=== PATIENT | female | born 1970 | race Caucasian/White ===

== ENCOUNTER 2022-06-15 14:02 | Inpatient (IN) | payer BC ==
[~2022-06-15] VITALS: Ht 160 cm; Wt 84.4 kg
[2022-06-15] MEDS ORDERED: ONDANSETRON HCL INJ 2MG/ML 2ML 2 MG/ML VIAL IV STA (14:22)
[2022-06-15 14:34] LABS: BASOPHILS % 0.2 % (0.0-1.0); EOSINOPHILS % 0.1 % (0.0-6.0); HEMATOCRIT 33.7 % (34.2-44.1); HEMOGLOBIN 10.3 g/dL (12.0-16.0); LYMPHOCYTES # (AUTO) 1.1 (1.0-3.2); LYMPHOCYTES % 4.6 % (18.0-39.1); MEAN CORPUSCULAR HEMOGLOBIN 20.6 pg (28-32); MEAN CORPUSCULAR HGB CONC 30.6 g/dL (31-35); MEAN CORPUSCULAR VOLUME 67.4 fL (81-99); MONOCYTES # (AUTO) 1.1 (0.2-0.8); MONOCYTES % 4.8 % (4.4-11.3); NEUTROPHILS # (AUTO) 20.4 (2.1-6.9); NEUTROPHILS % 89.3 % (38.7-80.0); PLATELET COUNT 361 x10e3/uL (140-360); RED CELL DISTRIBUTION WIDTH 17.8 % (11.7-14.4)
[2022-06-15 14:52] LABS: ALBUMIN 1.8 g/dL (3.5-5.0); ALBUMIN/GLOBULIN RATIO 0.4 (0.8-2.0); ANION GAP 16.4 mmol/L (8-16); CALCIUM 8.3 mg/dL (8.4-10.2); CREATININE, SERUM 0.83 mg/dL (0.57-1.11); POTASSIUM 3.4 mmol/L (3.5-5.1)
[2022-06-15 15:08] LABS: ANISOCYTOSIS SLIGHT; LYMPHOCYTES % (MANUAL) 7 % (19-48); MONOCYTES % (MANUAL) 5 % (3.4-9.0); NEUTROPHILS % (MANUAL) 88 % (40-74); PLATELET ESTIMATE ADEQUATE; PLATELET MORPHOLOGY COMMENT NORMAL; RBC MORPHOLOGY COMMENT NORMAL
[2022-06-15] MEDS ORDERED: ONDANSETRON HCL INJ 2MG/ML 2ML 2 MG/ML VIAL IV PRN (16:30)
[2022-06-15] MEDS ORDERED: Morphine 4mg INJECTION 4 MG/ML INJ IV PRN (16:30)
[2022-06-15] MEDS: SODIUM CHLORIDE 0.9% 1000ML 1,000 ML IV SCH (17:58)
[2022-06-15] MEDS: Vancomycin IV 1 GM in SODIUM CHLORIDE 0.9% 250ML 250 ML IV SCH (17:58)
[2022-06-16] MEDS: SODIUM CHLORIDE 0.9% 1000ML 1,000 ML IV SCH ×3 (02:47→15:43)
[2022-06-16 05:05] LABS: BASOPHILS # (AUTO) 0.1 (0.0-0.1); BASOPHILS % 0.3 % (0.0-1.0); EOSINOPHILS # (AUTO) 0.1 (0.0-0.4); EOSINOPHILS % 0.6 % (0.0-6.0); HEMATOCRIT 31.2 % (34.2-44.1); HEMOGLOBIN 9.4 g/dL (12.0-16.0); LYMPHOCYTES # (AUTO) 1.2 (1.0-3.2); LYMPHOCYTES % 6.3 % (18.0-39.1); MEAN CORPUSCULAR HEMOGLOBIN 20.2 pg (28-32); MEAN CORPUSCULAR HGB CONC 30.1 g/dL (31-35); MONOCYTES % 5.4 % (4.4-11.3); NEUTROPHILS # (AUTO) 15.7 (2.1-6.9); NEUTROPHILS % 86.2 % (38.7-80.0); PLATELET COUNT 328 x10e3/uL (140-360); RED BLOOD COUNT 4.66 x10e6/uL (3.6-5.1); RED CELL DISTRIBUTION WIDTH 18.3 % (11.7-14.4)
[2022-06-16] MEDS: Vancomycin IV 1 GM in SODIUM CHLORIDE 0.9% 250ML 250 ML IV SCH ×2 (05:10→15:09)
[2022-06-16 05:24] LABS: ALBUMIN 1.5 g/dL (3.5-5.0); ALBUMIN/GLOBULIN RATIO 0.4 (0.8-2.0); ANION GAP 15.5 mmol/L (8-16); CALCIUM 8.1 mg/dL (8.4-10.2); CREATININE, SERUM 0.78 mg/dL (0.57-1.11); POTASSIUM 3.5 mmol/L (3.5-5.1)
[2022-06-16] MEDS ORDERED: IOPAMIDOL 370 MG/ML 100 ML INFUS..BTL INJ ONE (11:03)
[2022-06-16] MEDS ORDERED: SODIUM CHLORIDE 0.9% 100 ML ONE (11:03)
[2022-06-16] MEDS ORDERED: FLORINEF ACETA0.1 MG PO (12:17)
[2022-06-16] MEDS ORDERED: GABAPENTIN100 MG PO (12:17)
[2022-06-16] MEDS ORDERED: DIGOXIN250 MCG PO (12:17)
[2022-06-16] MEDS ORDERED: ATORVASTATIN CA40 MG PO (12:17)
[2022-06-16] MEDS ORDERED: IBUPROFEN800 MG PO (12:17)
[2022-06-16] MEDS ORDERED: MIDODRINE HCL5 MG PO (12:17)
[2022-06-16] MEDS ORDERED: JARDIANCE25 MG PO (12:17)
[2022-06-16] MEDS ORDERED: NOVOLOG100 UNITS1 (12:17)
[2022-06-16] MEDS ORDERED: ULTRAM 50MG50 MG PO (12:17)
[2022-06-16] MEDS ORDERED: KLOR-CON M1010 MEQ PO (12:17)
[2022-06-16] MEDS ORDERED: METFORMIN HCL1000 MG PO (12:17)
[2022-06-16] MEDS ORDERED: CLOPIDOGREL75 MG PO (12:17)
[2022-06-16] MEDS ORDERED: PANTOPRAZOLE SO40 MG PO (12:17)
[2022-06-16] MEDS ORDERED: FENOFIBRATE160 MG PO (12:17)
[2022-06-16] MEDS ORDERED: METOPROLOL SUCC25 MG PO (12:17)
[2022-06-16] MEDS ORDERED: SPIRONOLACTONE25 MG PO (12:17)
[2022-06-16] MEDS ORDERED: SEMGLEE (Y100 UNIT/2 SQ (12:17)
[2022-06-16] MEDS ORDERED: [UNRECOGNIZED DRUG - OTHER] PO (12:17)
[2022-06-16] MEDS ORDERED: FUROSEMIDE40 MG PO (12:17)
[2022-06-16] MEDS ORDERED: MIDODRINE HCL 5 MG TABLET PO PRN (15:30)
[2022-06-16] MEDS ORDERED: DEXTROSE 50% SYRINGE 50 ML IV PRN (15:30)
[2022-06-16] MEDS: TRAMADOL HCL 50 MG TAB PO PRN (16:21)
[2022-06-16] MEDS: PANTOPRAZOLE SOD 40 MG TABEC PO SCH (16:53)
[2022-06-16] MEDS ORDERED: NON-FORMULARY MEDICATION (Metformin Hcl 1,000 MG) PO SCH (17:00)
[2022-06-16] MEDS: INSULIN LISPRO 100 UNIT/1 ML 3ML VIAL SQ SCH (17:03)
[2022-06-16] MEDS ORDERED: INSULIN GLARGINE YFGN SQ SCH (21:00)
[2022-06-16 21:12] VITALS: BP 141/72
[2022-06-16 23:23] VITALS: BP 141/72
[2022-06-16] MEDS: GABAPENTIN 100 MG CAP PO SCH (23:30)
[2022-06-16] MEDS: FUROSEMIDE INJ 10 MG/ML 4 ML VIAL IV SCH (23:30)
[2022-06-16] MEDS: ATORVASTATIN 40 MG TAB PO SCH (23:30)
[2022-06-16] MEDS: INSULIN GLARGINE 100 UNITS/ML VIAL SQ SCH (23:37)
[2022-06-17] VITALS (11 sets, daily range): BP systolic 116–141; BP diastolic 57–74
[2022-06-17] MEDS: INSULIN LISPRO 100 UNIT/1 ML 3ML VIAL SQ SCH ×5 (00:03→21:00)
[2022-06-17] MEDS: TRAMADOL HCL 50 MG TAB PO PRN ×3 (00:58→22:23)
[2022-06-17] MEDS: SODIUM CHLORIDE 0.9% 1000ML 1,000 ML IV SCH ×3 (00:58→16:58)
[2022-06-17] MEDS: Vancomycin IV 1 GM in SODIUM CHLORIDE 0.9% 250ML 250 ML IV SCH ×2 (01:00→14:30)
[2022-06-17 05:03] LABS: BASOPHILS # (AUTO) 0.1 (0.0-0.1); BASOPHILS % 0.3 % (0.0-1.0); EOSINOPHILS # (AUTO) 0.1 (0.0-0.4); EOSINOPHILS % 0.4 % (0.0-6.0); HEMATOCRIT 32.4 % (34.2-44.1); HEMOGLOBIN 9.7 g/dL (12.0-16.0); LYMPHOCYTES # (AUTO) 1.6 (1.0-3.2); LYMPHOCYTES % 8.8 % (18.0-39.1); MEAN CORPUSCULAR HEMOGLOBIN 20.1 pg (28-32); MEAN CORPUSCULAR HGB CONC 29.9 g/dL (31-35); MEAN CORPUSCULAR VOLUME 67.1 fL (81-99); MONOCYTES # (AUTO) 1.2 (0.2-0.8); MONOCYTES % 6.6 % (4.4-11.3); NEUTROPHILS # (AUTO) 14.7 (2.1-6.9); NEUTROPHILS % 83.1 % (38.7-80.0); PLATELET COUNT 401 x10e3/uL (140-360); RED BLOOD COUNT 4.83 x10e6/uL (3.6-5.1); RED CELL DISTRIBUTION WIDTH 18.5 % (11.7-14.4)
[2022-06-17 05:20] LABS: ALBUMIN 1.5 g/dL (3.5-5.0); ALBUMIN/GLOBULIN RATIO 0.4 (0.8-2.0); ANION GAP 13.6 mmol/L (8-16); CALCIUM 7.8 mg/dL (8.4-10.2); CHOL/HDL RATIO 4.5 (3.0-3.6); CREATININE, SERUM 0.77 mg/dL (0.57-1.11); POTASSIUM 3.6 mmol/L (3.5-5.1)
[2022-06-17 05:41] LABS: THYROID STIMULATING HORMONE 4.333 uIU/mL (0.350-4.940)
[2022-06-17] MEDS ORDERED: SPIRONOLACTONE 25 MG TAB PO SCH (09:00)
[2022-06-17] MEDS ORDERED: NON-FORMULARY MEDICATION (Atorvastatin Calcium 40 MG) PO SCH (09:00)
[2022-06-17] MEDS: FOLIC ACID PO SCH (09:00)
[2022-06-17] MEDS: NON-FORMULARY MEDICATION (Empagliflozin (Jardiance) 25 MG) PO SCH (09:00)
[2022-06-17] MEDS ORDERED: DIGOXIN 0.25 MG TAB PO SCH (09:00)
[2022-06-17] MEDS: VIT B COMPLEX AND C PO SCH (09:00)
[2022-06-17] MEDS ORDERED: CLOPIDOGREL BISULFATE 75 MG TAB PO SCH (09:00)
[2022-06-17] MEDS ORDERED: NON-FORMULARY MEDICATION (Fenofibrate 160 MG) PO SCH (09:00)
[2022-06-17] MEDS: FENOFIBRATE 145 MG TAB PO SCH (09:25)
[2022-06-17] MEDS: GABAPENTIN 100 MG CAP PO SCH ×3 (09:26→22:07)
[2022-06-17] MEDS: FLUDROCORTISONE ACETATE 0.1 MG TAB PO SCH (09:26)
[2022-06-17] MEDS: METOPROLOL SUCCINATE 25 MG TAB XL PO SCH (09:27)
[2022-06-17] MEDS: PANTOPRAZOLE SOD 40 MG TABEC PO SCH ×2 (09:27→16:58)
[2022-06-17] MEDS: POTASSIUM CHLORIDE 20 MEQ TAB CR PO SCH (09:28)
[2022-06-17] MEDS: METFORMIN HCL 500 MG TAB PO SCH ×2 (09:28→16:59)
[2022-06-17] MEDS: FUROSEMIDE INJ 10 MG/ML 4 ML VIAL IV SCH (09:29)
[2022-06-17] MEDS ORDERED: FUROSEMIDE IV SCH (11:15)
[2022-06-17] MEDS ORDERED: SODIUM CHLORIDE 0.9% IV SCH (11:15)
[2022-06-17] MEDS: DIGOXIN 0.125 MG TAB PO SCH (11:23)
[2022-06-17] MEDS ORDERED: CLOPIDOGREL BISULFATE 75 MG TAB PO ONE (17:45)
[2022-06-17] MEDS: INSULIN GLARGINE 100 UNITS/ML VIAL SQ SCH (21:00)
[2022-06-17] MEDS: ATORVASTATIN 40 MG TAB PO SCH (22:07)
[2022-06-18] VITALS (13 sets, daily range): BP systolic 109–147; BP diastolic 60–76
[2022-06-18 05:56] LABS: BASOPHILS # (AUTO) 0.1 (0.0-0.1); BASOPHILS % 0.3 % (0.0-1.0); EOSINOPHILS # (AUTO) 0.1 (0.0-0.4); EOSINOPHILS % 0.5 % (0.0-6.0); HEMATOCRIT 32.6 % (34.2-44.1); HEMOGLOBIN 9.7 g/dL (12.0-16.0); LYMPHOCYTES # (AUTO) 1.9 (1.0-3.2); LYMPHOCYTES % 10.2 % (18.0-39.1); MEAN CORPUSCULAR HEMOGLOBIN 20.3 pg (28-32); MEAN CORPUSCULAR HGB CONC 29.8 g/dL (31-35); MEAN CORPUSCULAR VOLUME 68.2 fL (81-99); MONOCYTES # (AUTO) 1.5 (0.2-0.8); NEUTROPHILS % 79.9 % (38.7-80.0); PLATELET COUNT 340 x10e3/uL (140-360); RED BLOOD COUNT 4.78 x10e6/uL (3.6-5.1); RED CELL DISTRIBUTION WIDTH 18.6 % (11.7-14.4)
[2022-06-18 06:24] LABS: CALCIUM 8.1 mg/dL (8.4-10.2); CREATININE, SERUM 0.8 mg/dL (0.57-1.11)
[2022-06-18] MEDS: INSULIN LISPRO 100 UNIT/1 ML 3ML VIAL SQ SCH ×4 (07:30→20:12)
[2022-06-18] MEDS: METFORMIN HCL 500 MG TAB PO SCH ×2 (08:00→16:44)
[2022-06-18] MEDS: FLUDROCORTISONE ACETATE 0.1 MG TAB PO SCH (09:00)
[2022-06-18] MEDS: POTASSIUM CHLORIDE 20 MEQ TAB CR PO SCH (09:00)
[2022-06-18] MEDS: GABAPENTIN 100 MG CAP PO SCH ×3 (09:00→20:12)
[2022-06-18] MEDS: VIT B COMPLEX AND C PO SCH (09:00)
[2022-06-18] MEDS: METOPROLOL SUCCINATE 25 MG TAB XL PO SCH (09:00)
[2022-06-18] MEDS: DIGOXIN 0.125 MG TAB PO SCH (09:00)
[2022-06-18] MEDS: FENOFIBRATE 145 MG TAB PO SCH (09:00)
[2022-06-18] MEDS ORDERED: FUROSEMIDE 40 MG TAB PO SCH (09:00)
[2022-06-18] MEDS: FOLIC ACID PO SCH (09:00)
[2022-06-18] MEDS: PANTOPRAZOLE SOD 40 MG TABEC PO SCH ×2 (09:00→16:51)
[2022-06-18] MEDS: NON-FORMULARY MEDICATION (Empagliflozin (Jardiance) 25 MG) PO SCH (09:00)
[2022-06-18] MEDS ORDERED: HEPARIN SOD/SOD CHLORIDE 2,000 ML ONE (10:04)
[2022-06-18] MEDS ORDERED: IOPAMIDOL 610MG/1ML 300 MG/ML VIAL IV ONE ×2 (10:04→10:40)
[2022-06-18] MEDS ORDERED: VERAPAMIL HCL 2.5 MG/ML 2 ML VIAL ONE (10:04)
[2022-06-18] MEDS ORDERED: HEPARIN SOD (PORCINE) 1000 UNIT/ML 30ML ONE (10:04)
[2022-06-18] MEDS ORDERED: SODIUM CHLORIDE 0.9% 1000ML 2,000 ML ONE (10:05)
[2022-06-18] MEDS ORDERED: NITROGLYCERIN/D5W 200 MCG/ML 250 ML ONE (10:05)
[2022-06-18] MEDS ORDERED: LIDOCAINE HCL 1% LOCAL INJ 20 ML VIAL ONE (10:05)
[2022-06-18] MEDS ORDERED: MIDAZOLAM HCL 2 MG/2 ML VIAL ONE ×2 (10:24→11:50)
[2022-06-18] MEDS ORDERED: FENTANYL CITRATE/PF 100MCG/2 ML INJ ONE ×2 (10:24→11:36)
[2022-06-18] MEDS ORDERED: HEPARIN SOD/SOD CHLORIDE 1,000 ML ONE (10:35)
[2022-06-18] MEDS ORDERED: SODIUM CHLORIDE 0.9% 1000ML 1,000 ML IV SCH ×2 (11:15→14:00)
[2022-06-18] MEDS ORDERED: CLOPIDOGREL BISULFATE 75 MG TAB ONE (12:53)
[2022-06-18] MEDS ORDERED: ASPIRIN 325 MG TAB ONE (12:54)
[2022-06-18] MEDS ORDERED: ONDANSETRON HCL INJ 2MG/ML 2ML 2 MG/ML VIAL IV PRN (14:00)
[2022-06-18] MEDS: HYDROCODONE/APAP 7.5MG-325MG 1 EA TAB PO PRN ×2 (16:50→23:18)
[2022-06-18] MEDS: BUMETANIDE 1 MG TAB PO SCH (16:51)
[2022-06-18] MEDS: SODIUM CHLORIDE 1 GM TAB PO SCH ×2 (16:51→20:11)
[2022-06-18] MEDS: ATORVASTATIN 40 MG TAB PO SCH (20:11)
[2022-06-18] MEDS: INSULIN GLARGINE 100 UNITS/ML VIAL SQ SCH (20:13)
[2022-06-19] VITALS (10 sets, daily range): BP systolic 112–128; BP diastolic 49–71
[2022-06-19 05:49] LABS: BASOPHILS # (AUTO) 0.1 (0.0-0.1); BASOPHILS % 0.4 % (0.0-1.0); EOSINOPHILS # (AUTO) 0.2 (0.0-0.4); EOSINOPHILS % 1.1 % (0.0-6.0); HEMATOCRIT 30.5 % (34.2-44.1); LYMPHOCYTES # (AUTO) 1.1 (1.0-3.2); LYMPHOCYTES % 8.1 % (18.0-39.1); MEAN CORPUSCULAR HEMOGLOBIN 20.2 pg (28-32); MEAN CORPUSCULAR HGB CONC 29.5 g/dL (31-35); MEAN CORPUSCULAR VOLUME 68.5 fL (81-99); MONOCYTES # (AUTO) 0.8 (0.2-0.8); MONOCYTES % 5.9 % (4.4-11.3); NEUTROPHILS # (AUTO) 11.7 (2.1-6.9); NEUTROPHILS % 83.4 % (38.7-80.0); PLATELET COUNT 312 x10e3/uL (140-360); RED BLOOD COUNT 4.45 x10e6/uL (3.6-5.1); RED CELL DISTRIBUTION WIDTH 18.6 % (11.7-14.4)
[2022-06-19 06:26] LABS: ALBUMIN 1.4 g/dL (3.5-5.0); ALBUMIN/GLOBULIN RATIO 0.4 (0.8-2.0); CALCIUM 8.1 mg/dL (8.4-10.2); CREATININE, SERUM 0.81 mg/dL (0.57-1.11)
[2022-06-19] MEDS ORDERED: ONDANSETRON HCL 4 MG ORAL DISINTEGRATING TAB PO PRN (08:30)
[2022-06-19] MEDS: DIGOXIN 0.125 MG TAB PO SCH (08:37)
[2022-06-19] MEDS: FENOFIBRATE 145 MG TAB PO SCH (08:37)
[2022-06-19] MEDS: FLUDROCORTISONE ACETATE 0.1 MG TAB PO SCH (08:38)
[2022-06-19] MEDS: METOPROLOL SUCCINATE 25 MG TAB XL PO SCH (08:40)
[2022-06-19] MEDS: BUMETANIDE 1 MG TAB PO SCH ×2 (08:41→18:30)
[2022-06-19] MEDS: METFORMIN HCL 500 MG TAB PO SCH (08:42)
[2022-06-19] MEDS: CLOPIDOGREL BISULFATE 75 MG TAB PO SCH (08:42)
[2022-06-19] MEDS: NON-FORMULARY MEDICATION (Empagliflozin (Jardiance) 25 MG) PO SCH (08:43)
[2022-06-19] MEDS: GABAPENTIN 100 MG CAP PO SCH ×3 (08:44→22:03)
[2022-06-19] MEDS: FOLIC ACID PO SCH (08:44)
[2022-06-19] MEDS: VIT B COMPLEX AND C PO SCH (08:44)
[2022-06-19] MEDS: PANTOPRAZOLE SOD 40 MG TABEC PO SCH ×2 (08:45→18:30)
[2022-06-19] MEDS: SODIUM CHLORIDE 1 GM TAB PO SCH ×3 (08:46→22:03)
[2022-06-19] MEDS: POTASSIUM CHLORIDE 20 MEQ TAB CR PO SCH (08:47)
[2022-06-19] MEDS: INSULIN LISPRO 100 UNIT/1 ML 3ML VIAL SQ SCH ×4 (09:08→21:00)
[2022-06-19] MEDS: HYDROCODONE/APAP 7.5MG-325MG 1 EA TAB PO PRN ×2 (09:11→16:29)
[2022-06-19] MEDS: NYSTATIN SUSPENSION 5 ML UDC PO SCH ×2 (14:23→22:04)
[2022-06-19] MEDS: CEFTRIAXONE 2 GM in SODIUM CHLORIDE 0.9% 100 ML IV SCH (18:30)
[2022-06-19] MEDS: FLUCONAZOLE 100 MG TAB PO SCH (18:33)
[2022-06-19] MEDS: INSULIN GLARGINE 100 UNITS/ML VIAL SQ SCH (21:00)
[2022-06-19] MEDS: Vancomycin IV 1 GM in SODIUM CHLORIDE 0.9% 250ML 250 ML IV SCH (22:01)
[2022-06-19] MEDS: CLOTRIMAZOLE 10 MG TAB PO SCH (22:03)
[2022-06-19] MEDS: ATORVASTATIN 40 MG TAB PO SCH (22:03)
[2022-06-20] VITALS (8 sets, daily range): BP systolic 107–147; BP diastolic 62–81
[2022-06-20] MEDS: HYDROCODONE/APAP 7.5MG-325MG 1 EA TAB PO PRN ×3 (00:13→20:57)
[2022-06-20] MEDS: NYSTATIN SUSPENSION 5 ML UDC PO SCH ×3 (04:41→20:57)
[2022-06-20] MEDS: CLOTRIMAZOLE 10 MG TAB PO SCH ×5 (04:42→20:57)
[2022-06-20] MEDS: INSULIN LISPRO 100 UNIT/1 ML 3ML VIAL SQ SCH ×4 (07:30→21:07)
[2022-06-20] MEDS: DIGOXIN 0.125 MG TAB PO SCH (08:51)
[2022-06-20] MEDS: PANTOPRAZOLE SOD 40 MG TABEC PO SCH ×2 (08:51→16:51)
[2022-06-20] MEDS: CEFTRIAXONE 2 GM in SODIUM CHLORIDE 0.9% 100 ML IV SCH (08:51)
[2022-06-20] MEDS: GABAPENTIN 100 MG CAP PO SCH ×3 (08:51→20:57)
[2022-06-20] MEDS: FLUCONAZOLE 100 MG TAB PO SCH (08:52)
[2022-06-20] MEDS: BUMETANIDE 1 MG TAB PO SCH ×2 (08:52→16:51)
[2022-06-20] MEDS: CLOPIDOGREL BISULFATE 75 MG TAB PO SCH (08:52)
[2022-06-20] MEDS: FENOFIBRATE 145 MG TAB PO SCH (08:52)
[2022-06-20] MEDS: FLUDROCORTISONE ACETATE 0.1 MG TAB PO SCH (08:52)
[2022-06-20] MEDS: METOPROLOL SUCCINATE 25 MG TAB XL PO SCH (08:52)
[2022-06-20] MEDS: VIT B COMPLEX AND C PO SCH (08:53)
[2022-06-20] MEDS: FOLIC ACID PO SCH (08:53)
[2022-06-20] MEDS: NON-FORMULARY MEDICATION (Empagliflozin (Jardiance) 25 MG) PO SCH (08:53)
[2022-06-20] MEDS: SODIUM CHLORIDE 1 GM TAB PO SCH ×3 (08:55→20:58)
[2022-06-20] MEDS ORDERED: CEFTRIAXONE 2 GM in SODIUM CHLORIDE 0.9% 100 ML IV SCH (09:00)
[2022-06-20] MEDS: Vancomycin IV 1 GM in SODIUM CHLORIDE 0.9% 250ML 250 ML IV SCH (20:56)
[2022-06-20] MEDS: ATORVASTATIN 40 MG TAB PO SCH (20:57)
[2022-06-20] MEDS: INSULIN GLARGINE 100 UNITS/ML VIAL SQ SCH (21:06)
[2022-06-21] VITALS (8 sets, daily range): BP systolic 107–142; BP diastolic 59–76
[2022-06-21] MEDS: NYSTATIN SUSPENSION 5 ML UDC PO SCH ×3 (04:42→22:00)
[2022-06-21] MEDS: CLOTRIMAZOLE 10 MG TAB PO SCH ×5 (04:43→21:00)
[2022-06-21] MEDS: INSULIN LISPRO 100 UNIT/1 ML 3ML VIAL SQ SCH ×4 (07:27→21:00)
[2022-06-21 07:41] LABS: ALBUMIN 1.7 g/dL (3.5-5.0); ALBUMIN/GLOBULIN RATIO 0.4 (0.8-2.0); ANION GAP 12.2 mmol/L (8-16); CALCIUM 8.7 mg/dL (8.4-10.2); CREATININE, SERUM 0.82 mg/dL (0.57-1.11); POTASSIUM 4.2 mmol/L (3.5-5.1)
[2022-06-21] MEDS: FENOFIBRATE 145 MG TAB PO SCH (08:30)
[2022-06-21] MEDS: METOPROLOL SUCCINATE 25 MG TAB XL PO SCH (08:31)
[2022-06-21] MEDS: PANTOPRAZOLE SOD 40 MG TABEC PO SCH ×2 (08:31→17:45)
[2022-06-21] MEDS: CLOPIDOGREL BISULFATE 75 MG TAB PO SCH (08:31)
[2022-06-21] MEDS: LOSARTAN POTASSIUM 25 MG TAB PO SCH (08:31)
[2022-06-21] MEDS: FLUCONAZOLE 100 MG TAB PO SCH (08:32)
[2022-06-21] MEDS: BUMETANIDE 1 MG TAB PO SCH (08:32)
[2022-06-21] MEDS: FLUDROCORTISONE ACETATE 0.1 MG TAB PO SCH (08:32)
[2022-06-21] MEDS: SODIUM CHLORIDE 1 GM TAB PO SCH (08:32)
[2022-06-21] MEDS: GABAPENTIN 100 MG CAP PO SCH ×3 (08:32→21:03)
[2022-06-21] MEDS: DIGOXIN 0.125 MG TAB PO SCH (08:32)
[2022-06-21] MEDS: NON-FORMULARY MEDICATION (Empagliflozin (Jardiance) 25 MG) PO SCH (08:33)
[2022-06-21] MEDS: FOLIC ACID PO SCH (08:33)
[2022-06-21] MEDS: CEFTRIAXONE 2 GM in SODIUM CHLORIDE 0.9% 100 ML IV SCH (08:33)
[2022-06-21] MEDS: VIT B COMPLEX AND C PO SCH (08:33)
[2022-06-21] MEDS: FUROSEMIDE INJ 100 MG in SODIUM CHLORIDE 0.9% 90 ML IV SCH ×2 (11:35→21:23)
[2022-06-21] MEDS: HYDROCODONE/APAP 7.5MG-325MG 1 EA TAB PO PRN ×2 (13:28→21:03)
[2022-06-21] MEDS: INSULIN GLARGINE 100 UNITS/ML VIAL SQ SCH (21:00)
[2022-06-21] MEDS: ATORVASTATIN 40 MG TAB PO SCH (21:03)
[2022-06-21] MEDS: Vancomycin IV 1 GM in SODIUM CHLORIDE 0.9% 250ML 250 ML IV SCH (21:23)
[2022-06-22] VITALS (7 sets, daily range): BP systolic 102–135; BP diastolic 51–78
[2022-06-22] MEDS: HYDROCODONE/APAP 7.5MG-325MG 1 EA TAB PO PRN ×2 (04:01→21:24)
[2022-06-22] MEDS: CLOTRIMAZOLE 10 MG TAB PO SCH ×5 (05:00→21:00)
[2022-06-22 05:20] LABS: CLARITY,URINE SL CLOUDY (CLEAR); COLOR,URINE YELLOW (YELLOW)
[2022-06-22 05:21] LABS: KETONES,URINE NEGATIVE (NEGATIVE); LEUKOCYTE ESTERASE ,URINE NEGATIVE (NEGATIVE); NITRITE,URINE NEGATIVE (NEGATIVE); PROTEIN,URINE DIPSTICK NEGATIVE (NEGATIVE); URINE UROBILINOGEN 0.2 mg/dL (0.2 - 1)
[2022-06-22 05:54] LABS: CREATININE,URINE RANDOM 30.82 mg/dL (47-110); TOTAL PROTEIN, URINE 18.3 mg/dL (1-14)
[2022-06-22] MEDS: NYSTATIN SUSPENSION 5 ML UDC PO SCH ×3 (06:00→21:24)
[2022-06-22 06:54] LABS: BACTERIA,URINE FEW /HPF; EPITHELIAL CELLS,URINE FEW /LPF; WBC,URINE (MAN) 0-5 /HPF (0-5); YEAST,URINE MANY
[2022-06-22] MEDS: INSULIN LISPRO 100 UNIT/1 ML 3ML VIAL SQ SCH ×4 (07:30→21:00)
[2022-06-22] MEDS: FUROSEMIDE INJ 100 MG in SODIUM CHLORIDE 0.9% 90 ML IV SCH ×2 (07:34→17:14)
[2022-06-22] MEDS: FLUDROCORTISONE ACETATE 0.1 MG TAB PO SCH (08:56)
[2022-06-22] MEDS: GABAPENTIN 100 MG CAP PO SCH ×3 (08:56→21:23)
[2022-06-22] MEDS: DIGOXIN 0.125 MG TAB PO SCH (08:56)
[2022-06-22] MEDS: FLUCONAZOLE 100 MG TAB PO SCH (08:56)
[2022-06-22] MEDS: FENOFIBRATE 145 MG TAB PO SCH (08:56)
[2022-06-22] MEDS: CLOPIDOGREL BISULFATE 75 MG TAB PO SCH (08:56)
[2022-06-22] MEDS: METOPROLOL SUCCINATE 25 MG TAB XL PO SCH (08:57)
[2022-06-22] MEDS: METOLAZONE 5 MG TAB PO SCH (08:58)
[2022-06-22] MEDS: VIT B COMPLEX AND C PO SCH (08:58)
[2022-06-22] MEDS: PANTOPRAZOLE SOD 40 MG TABEC PO SCH ×2 (08:58→17:12)
[2022-06-22] MEDS: FOLIC ACID PO SCH (08:58)
[2022-06-22] MEDS: LOSARTAN POTASSIUM 25 MG TAB PO SCH (08:59)
[2022-06-22] MEDS: CEFTRIAXONE 2 GM in SODIUM CHLORIDE 0.9% 100 ML IV SCH (08:59)
[2022-06-22] MEDS: NON-FORMULARY MEDICATION (Empagliflozin (Jardiance) 25 MG) PO SCH (08:59)
[2022-06-22] MEDS: ATORVASTATIN 40 MG TAB PO SCH (21:23)
[2022-06-22] MEDS: INSULIN GLARGINE 100 UNITS/ML VIAL SQ SCH (21:28)
[2022-06-22] MEDS: Vancomycin IV 1 GM in SODIUM CHLORIDE 0.9% 250ML 250 ML IV SCH (21:43)
[2022-06-23] VITALS (8 sets, daily range): BP systolic 109–125; BP diastolic 59–65
[2022-06-23] MEDS: FUROSEMIDE INJ 100 MG in SODIUM CHLORIDE 0.9% 90 ML IV SCH ×2 (03:28→13:36)
[2022-06-23 06:15] LABS: BASOPHILS % 0.3 % (0.0-1.0); EOSINOPHILS # (AUTO) 0.2 (0.0-0.4); EOSINOPHILS % 1.4 % (0.0-6.0); HEMATOCRIT 27.4 % (34.2-44.1); HEMOGLOBIN 8.6 g/dL (12.0-16.0); LYMPHOCYTES # (AUTO) 1.8 (1.0-3.2); LYMPHOCYTES % 14.8 % (18.0-39.1); MEAN CORPUSCULAR HEMOGLOBIN 22.1 pg (28-32); MEAN CORPUSCULAR HGB CONC 31.4 g/dL (31-35); MEAN CORPUSCULAR VOLUME 70.4 fL (81-99); MONOCYTES # (AUTO) 0.9 (0.2-0.8); MONOCYTES % 7.4 % (4.4-11.3); NEUTROPHILS # (AUTO) 9.3 (2.1-6.9); NEUTROPHILS % 75.1 % (38.7-80.0); PLATELET COUNT 330 x10e3/uL (140-360); RED BLOOD COUNT 3.89 x10e6/uL (3.6-5.1); RED CELL DISTRIBUTION WIDTH 21.7 % (11.7-14.4)
[2022-06-23 06:41] LABS: ALBUMIN 1.6 g/dL (3.5-5.0); ALBUMIN/GLOBULIN RATIO 0.4 (0.8-2.0); CALCIUM 8.4 mg/dL (8.4-10.2); CREATININE, SERUM 0.82 mg/dL (0.57-1.11)
[2022-06-23] MEDS: CLOTRIMAZOLE 10 MG TAB PO SCH ×5 (06:41→20:38)
[2022-06-23] MEDS: NYSTATIN SUSPENSION 5 ML UDC PO SCH ×3 (06:42→20:39)
[2022-06-23] MEDS: INSULIN LISPRO 100 UNIT/1 ML 3ML VIAL SQ SCH ×4 (07:30→20:08)
[2022-06-23] MEDS: FOLIC ACID PO SCH (09:00)
[2022-06-23] MEDS: NON-FORMULARY MEDICATION (Empagliflozin (Jardiance) 25 MG) PO SCH (09:00)
[2022-06-23] MEDS: VIT B COMPLEX AND C PO SCH (09:00)
[2022-06-23] MEDS: METOLAZONE 5 MG TAB PO SCH (09:26)
[2022-06-23] MEDS: CEFTRIAXONE 2 GM in SODIUM CHLORIDE 0.9% 100 ML IV SCH (09:26)
[2022-06-23] MEDS: FLUDROCORTISONE ACETATE 0.1 MG TAB PO SCH (09:27)
[2022-06-23] MEDS: FENOFIBRATE 145 MG TAB PO SCH (09:27)
[2022-06-23] MEDS: GABAPENTIN 100 MG CAP PO SCH ×3 (09:27→20:38)
[2022-06-23] MEDS: PANTOPRAZOLE SOD 40 MG TABEC PO SCH ×2 (09:27→17:08)
[2022-06-23] MEDS: DIGOXIN 0.125 MG TAB PO SCH (09:27)
[2022-06-23] MEDS: METOPROLOL SUCCINATE 25 MG TAB XL PO SCH (09:28)
[2022-06-23] MEDS: FLUCONAZOLE 100 MG TAB PO SCH (09:29)
[2022-06-23] MEDS: LOSARTAN POTASSIUM 25 MG TAB PO SCH (09:29)
[2022-06-23] MEDS: HYDROCODONE/APAP 7.5MG-325MG 1 EA TAB PO PRN ×2 (09:43→20:38)
[2022-06-23] MEDS ORDERED: POTASSIUM CHLORIDE 20MEQ/100ML 200 ML IV ONE (11:00)
[2022-06-23] MEDS ORDERED: ENOXAPARIN SOD INJ 40 MG/0.4 ML SYR SC SCH (17:00)
[2022-06-23] MEDS: POTASSIUM CITRATE ER 10 MEQ TAB PO SCH (17:08)
[2022-06-23] MEDS: INSULIN GLARGINE 100 UNITS/ML VIAL SQ SCH (20:08)
[2022-06-23] MEDS: ATORVASTATIN 40 MG TAB PO SCH (20:37)
[2022-06-23] MEDS: Vancomycin IV 1 GM in SODIUM CHLORIDE 0.9% 250ML 250 ML IV SCH (22:32)
[2022-06-24] VITALS (7 sets, daily range): BP systolic 98–117; BP diastolic 59–80
[2022-06-24] MEDS: FUROSEMIDE INJ 100 MG in SODIUM CHLORIDE 0.9% 90 ML IV SCH ×3 (00:10→21:38)
[2022-06-24] MEDS: CLOTRIMAZOLE 10 MG TAB PO SCH ×5 (05:38→21:00)
[2022-06-24] MEDS: NYSTATIN SUSPENSION 5 ML UDC PO SCH ×3 (05:38→22:00)
[2022-06-24] MEDS: HYDROCODONE/APAP 7.5MG-325MG 1 EA TAB PO PRN ×4 (05:38→23:51)
[2022-06-24 06:20] LABS: ANION GAP 11.2 mmol/L (8-16); CALCIUM 8.4 mg/dL (8.4-10.2); CREATININE, SERUM 0.88 mg/dL (0.57-1.11); MAGNESIUM 1.4 MG/DL (1.3-2.1); POTASSIUM 3.2 mmol/L (3.5-5.1)
[2022-06-24] MEDS: INSULIN LISPRO 100 UNIT/1 ML 3ML VIAL SQ SCH ×4 (07:30→21:00)
[2022-06-24] MEDS: NON-FORMULARY MEDICATION (Empagliflozin (Jardiance) 25 MG) PO SCH (09:00)
[2022-06-24] MEDS: CEFTRIAXONE 2 GM in SODIUM CHLORIDE 0.9% 100 ML IV SCH (09:23)
[2022-06-24] MEDS: FENOFIBRATE 145 MG TAB PO SCH (09:23)
[2022-06-24] MEDS: FLUDROCORTISONE ACETATE 0.1 MG TAB PO SCH (09:23)
[2022-06-24] MEDS: POTASSIUM CITRATE ER 10 MEQ TAB PO SCH ×2 (09:24→17:58)
[2022-06-24] MEDS: PANTOPRAZOLE SOD 40 MG TABEC PO SCH ×2 (09:24→17:15)
[2022-06-24] MEDS: METOPROLOL SUCCINATE 25 MG TAB XL PO SCH (09:25)
[2022-06-24] MEDS: LOSARTAN POTASSIUM 25 MG TAB PO SCH (09:25)
[2022-06-24] MEDS: GABAPENTIN 100 MG CAP PO SCH ×3 (09:25→21:38)
[2022-06-24] MEDS: DIGOXIN 0.125 MG TAB PO SCH (09:25)
[2022-06-24] MEDS: FLUCONAZOLE 100 MG TAB PO SCH (09:37)
[2022-06-24] MEDS ORDERED: ACETAZOLAMIDE SODIUM 500 MG/VIAL IV SCH (14:00)
[2022-06-24] MEDS: VANCOMYCIN HCL 1.25 GM in SODIUM CHLORIDE 0.9% 250ML 250 ML IV SCH ×2 (17:14→21:00)
[2022-06-24] MEDS: KCL 20 MEQ PACKET/ ORAL SOLN PO SCH ×2 (17:14→18:17)
[2022-06-24] MEDS: ACETAZOLAMIDE SODIUM 500 MG/VIAL IV SCH (18:00)
[2022-06-24] MEDS: INSULIN GLARGINE 100 UNITS/ML VIAL SQ SCH (21:00)
[2022-06-24] MEDS: ATORVASTATIN 40 MG TAB PO SCH (21:38)
[2022-06-25 00:04] VITALS: BP 118/68
[2022-06-25] MEDS: ACETAZOLAMIDE SODIUM 500 MG/VIAL IV SCH ×2 (02:24→10:00)
[2022-06-25] MEDS: CLOTRIMAZOLE 10 MG TAB PO SCH ×5 (05:00→20:11)
[2022-06-25] MEDS: FUROSEMIDE INJ 100 MG in SODIUM CHLORIDE 0.9% 90 ML IV SCH ×3 (05:00→22:05)
[2022-06-25 05:01] VITALS: BP 120/68
[2022-06-25] MEDS: NYSTATIN SUSPENSION 5 ML UDC PO SCH ×2 (05:03→14:00)
[2022-06-25] MEDS: INSULIN LISPRO 100 UNIT/1 ML 3ML VIAL SQ SCH ×4 (07:30→22:09)
[2022-06-25 08:03] VITALS: BP_SYST 112; BP_SYST 113; BP_DIAS 62; BP_DIAS 64
[2022-06-25] MEDS: GABAPENTIN 100 MG CAP PO SCH ×3 (09:00→20:11)
[2022-06-25] MEDS: NON-FORMULARY MEDICATION (Empagliflozin (Jardiance) 25 MG) PO SCH (09:00)
[2022-06-25] MEDS: CEFTRIAXONE 2 GM in SODIUM CHLORIDE 0.9% 100 ML IV SCH (09:06)
[2022-06-25] MEDS: VANCOMYCIN HCL 1.25 GM in SODIUM CHLORIDE 0.9% 250ML 250 ML IV SCH ×2 (09:06→23:09)
[2022-06-25] MEDS: FLUCONAZOLE 100 MG TAB PO SCH (09:09)
[2022-06-25] MEDS: LOSARTAN POTASSIUM 25 MG TAB PO SCH (09:10)
[2022-06-25] MEDS: POTASSIUM CITRATE ER 10 MEQ TAB PO SCH ×2 (09:10→17:01)
[2022-06-25] MEDS: FENOFIBRATE 145 MG TAB PO SCH (09:10)
[2022-06-25] MEDS: FLUDROCORTISONE ACETATE 0.1 MG TAB PO SCH (09:10)
[2022-06-25] MEDS: METOPROLOL SUCCINATE 25 MG TAB XL PO SCH (09:11)
[2022-06-25] MEDS: DIGOXIN 0.125 MG TAB PO SCH (09:11)
[2022-06-25] MEDS: PANTOPRAZOLE SOD 40 MG TABEC PO SCH ×2 (09:11→17:00)
[2022-06-25 12:00] VITALS: BP 124/66
[2022-06-25] MEDS ORDERED: FENTANYL CITRATE/PF 100MCG/2 ML INJ ONE (12:40)
[2022-06-25] MEDS ORDERED: KETAMINE HCL INJ 50 MG/ML 10 ML VIAL ONE (12:40)
[2022-06-25] MEDS ORDERED: MIDAZOLAM HCL 2 MG/2 ML VIAL ONE (12:40)
[2022-06-25] MEDS ORDERED: ETOMIDATE 2 MG/ML 10 ML INJ IV ONE (13:19)
[2022-06-25] MEDS ORDERED: PROPOFOL IV EMULSION 10 MG/ML 20 ML VIAL ONE (13:19)
[2022-06-25] MEDS ORDERED: POVIDONE IODINE 0.05% 0.05 % ML PO ONE (13:19)
[2022-06-25] MEDS ORDERED: LIDOCAINE HCL 2% LOCAL INJ 5 ML SDV VIAL INJ ONE (13:19)
[2022-06-25] MEDS ORDERED: ONDANSETRON HCL INJ 2MG/ML 2ML 2 MG/ML VIAL ONE (13:19)
[2022-06-25] MEDS ORDERED: DEXAMETHASONE SOD PHOS 10 MG/1 ML VIAL ONE (13:22)
[2022-06-25] MEDS ORDERED: ROPIVACAINE 0.5% 5 MG/ML 30 ML SDV ONE (13:22)
[2022-06-25] MEDS: SODIUM CHLORIDE 0.9% 1000ML 1,000 ML IV SCH ×2 (14:15→20:12)
[2022-06-25 16:15] VITALS: BP 117/56
[2022-06-25] MEDS: ATORVASTATIN 40 MG TAB PO SCH (20:11)
[2022-06-25] MEDS: HYDROMORPHONE 1MG/1ML INJ IV PRN (20:13)
[2022-06-25] MEDS: ONDANSETRON HCL INJ 2MG/ML 2ML 2 MG/ML VIAL IV PRN (20:15)
[2022-06-25 21:00] VITALS: BP 117/56
[2022-06-25] MEDS: INSULIN GLARGINE 100 UNITS/ML VIAL SQ SCH (22:08)
[2022-06-26] VITALS (7 sets, daily range): BP systolic 95–107; BP diastolic 43–64
[2022-06-26] MEDS: CLOTRIMAZOLE 10 MG TAB PO SCH ×4 (05:26→17:25)
[2022-06-26] MEDS: NYSTATIN SUSPENSION 5 ML UDC PO SCH ×2 (05:26→06:00)
[2022-06-26 06:01] LABS: BASOPHILS % 0.2 % (0.0-1.0); HEMATOCRIT 29.3 % (34.2-44.1); HEMOGLOBIN 8.6 g/dL (12.0-16.0); LYMPHOCYTES # (AUTO) 0.9 (1.0-3.2); LYMPHOCYTES % 8.3 % (18.0-39.1); MEAN CORPUSCULAR HEMOGLOBIN 20.5 pg (28-32); MEAN CORPUSCULAR HGB CONC 29.4 g/dL (31-35); MEAN CORPUSCULAR VOLUME 69.8 fL (81-99); MONOCYTES # (AUTO) 0.6 (0.2-0.8); NEUTROPHILS # (AUTO) 9.7 (2.1-6.9); NEUTROPHILS % 85.8 % (38.7-80.0); PLATELET COUNT 514 x10e3/uL (140-360); RED CELL DISTRIBUTION WIDTH 19.7 % (11.7-14.4)
[2022-06-26 06:22] LABS: ALBUMIN 1.4 g/dL (3.5-5.0); ALBUMIN/GLOBULIN RATIO 0.4 (0.8-2.0); ANION GAP 12.6 mmol/L (8-16); CALCIUM 8.5 mg/dL (8.4-10.2); CREATININE, SERUM 1.07 mg/dL (0.57-1.11); POTASSIUM 3.6 mmol/L (3.5-5.1)
[2022-06-26] MEDS: VANCOMYCIN HCL 1.25 GM in SODIUM CHLORIDE 0.9% 250ML 250 ML IV SCH (08:36)
[2022-06-26] MEDS: FLUDROCORTISONE ACETATE 0.1 MG TAB PO SCH (08:37)
[2022-06-26] MEDS: DIGOXIN 0.125 MG TAB PO SCH (08:40)
[2022-06-26] MEDS: FLUCONAZOLE 100 MG TAB PO SCH (08:41)
[2022-06-26] MEDS: POTASSIUM CITRATE ER 10 MEQ TAB PO SCH ×2 (08:41→17:26)
[2022-06-26] MEDS: FENOFIBRATE 145 MG TAB PO SCH (08:42)
[2022-06-26] MEDS: METOPROLOL SUCCINATE 25 MG TAB XL PO SCH (08:48)
[2022-06-26] MEDS: HYDROMORPHONE 1MG/1ML INJ IV PRN ×4 (08:48→21:04)
[2022-06-26] MEDS: PANTOPRAZOLE SOD 40 MG TABEC PO SCH ×2 (08:49→17:25)
[2022-06-26] MEDS: LOSARTAN POTASSIUM 25 MG TAB PO SCH (08:49)
[2022-06-26] MEDS: GABAPENTIN 100 MG CAP PO SCH ×3 (08:49→20:55)
[2022-06-26] MEDS: NON-FORMULARY MEDICATION (Empagliflozin (Jardiance) 25 MG) PO SCH (08:57)
[2022-06-26] MEDS: INSULIN LISPRO 100 UNIT/1 ML 3ML VIAL SQ SCH ×4 (09:22→20:55)
[2022-06-26] MEDS: SODIUM CHLORIDE 0.9% 1000ML 1,000 ML IV SCH (12:22)
[2022-06-26] MEDS: FUROSEMIDE INJ 100 MG in SODIUM CHLORIDE 0.9% 90 ML IV SCH ×2 (12:24→21:03)
[2022-06-26] MEDS: ATORVASTATIN 40 MG TAB PO SCH (20:55)
[2022-06-26] MEDS: INSULIN GLARGINE 100 UNITS/ML VIAL SQ SCH (21:00)
[2022-06-27] VITALS (7 sets, daily range): BP systolic 91–106; BP diastolic 52–65
[2022-06-27] MEDS: HYDROMORPHONE 1MG/1ML INJ IV PRN ×6 (00:39→21:03)
[2022-06-27] MEDS: SODIUM CHLORIDE 0.9% 1000ML 1,000 ML IV SCH ×3 (00:40→15:54)
[2022-06-27] MEDS: INSULIN LISPRO 100 UNIT/1 ML 3ML VIAL SQ SCH ×4 (07:30→21:00)
[2022-06-27] MEDS: NON-FORMULARY MEDICATION (Empagliflozin (Jardiance) 25 MG) PO SCH (07:34)
[2022-06-27] MEDS: DIGOXIN 0.125 MG TAB PO SCH (08:17)
[2022-06-27] MEDS: POTASSIUM CITRATE ER 10 MEQ TAB PO SCH ×2 (08:17→17:09)
[2022-06-27] MEDS: FLUDROCORTISONE ACETATE 0.1 MG TAB PO SCH (08:17)
[2022-06-27] MEDS: FENOFIBRATE 145 MG TAB PO SCH (08:17)
[2022-06-27] MEDS: PANTOPRAZOLE SOD 40 MG TABEC PO SCH ×2 (08:17→17:09)
[2022-06-27] MEDS: METOPROLOL SUCCINATE 25 MG TAB XL PO SCH (08:18)
[2022-06-27] MEDS: LOSARTAN POTASSIUM 25 MG TAB PO SCH (08:18)
[2022-06-27] MEDS: GABAPENTIN 100 MG CAP PO SCH ×3 (08:18→21:06)
[2022-06-27] MEDS: FUROSEMIDE INJ 100 MG in SODIUM CHLORIDE 0.9% 90 ML IV SCH ×2 (08:25→17:09)
[2022-06-27] MEDS: ATORVASTATIN 40 MG TAB PO SCH (21:06)
[2022-06-28] VITALS (7 sets, daily range): BP systolic 110–118; BP diastolic 57–70
[2022-06-28] MEDS: INSULIN GLARGINE 100 UNITS/ML VIAL SQ SCH ×2 (02:44→21:56)
[2022-06-28] MEDS: SODIUM CHLORIDE 0.9% 1000ML 1,000 ML IV SCH (05:25)
[2022-06-28] MEDS: FUROSEMIDE INJ 100 MG in SODIUM CHLORIDE 0.9% 90 ML IV SCH ×3 (05:26→17:04)
[2022-06-28] MEDS: INSULIN LISPRO 100 UNIT/1 ML 3ML VIAL SQ SCH ×4 (07:30→21:00)
[2022-06-28] MEDS: HYDROMORPHONE 1MG/1ML INJ IV PRN (07:54)
[2022-06-28] MEDS: METOPROLOL SUCCINATE 25 MG TAB XL PO SCH (07:55)
[2022-06-28] MEDS: POTASSIUM CITRATE ER 10 MEQ TAB PO SCH (07:55)
[2022-06-28] MEDS: DIGOXIN 0.125 MG TAB PO SCH (07:56)
[2022-06-28] MEDS: GABAPENTIN 100 MG CAP PO SCH ×3 (07:56→21:00)
[2022-06-28] MEDS: FENOFIBRATE 145 MG TAB PO SCH (07:56)
[2022-06-28] MEDS: PANTOPRAZOLE SOD 40 MG TABEC PO SCH ×2 (07:56→16:56)
[2022-06-28] MEDS: LOSARTAN POTASSIUM 25 MG TAB PO SCH (07:56)
[2022-06-28] MEDS: ONDANSETRON HCL INJ 2MG/ML 2ML 2 MG/ML VIAL IV PRN (07:57)
[2022-06-28] MEDS: NON-FORMULARY MEDICATION (Empagliflozin (Jardiance) 25 MG) PO SCH (09:00)
[2022-06-28] MEDS: FLUDROCORTISONE ACETATE 0.1 MG TAB PO SCH (09:46)
[2022-06-28 11:17] LABS: BASOPHILS # (AUTO) 0.1 (0.0-0.1); BASOPHILS % 0.5 % (0.0-1.0); EOSINOPHILS # (AUTO) 0.1 (0.0-0.4); EOSINOPHILS % 1.3 % (0.0-6.0); HEMATOCRIT 28.2 % (34.2-44.1); HEMOGLOBIN 8.2 g/dL (12.0-16.0); LYMPHOCYTES # (AUTO) 1.6 (1.0-3.2); LYMPHOCYTES % 14.9 % (18.0-39.1); MEAN CORPUSCULAR HEMOGLOBIN 20.9 pg (28-32); MEAN CORPUSCULAR HGB CONC 29.1 g/dL (31-35); MEAN CORPUSCULAR VOLUME 71.9 fL (81-99); MONOCYTES # (AUTO) 0.7 (0.2-0.8); MONOCYTES % 6.3 % (4.4-11.3); NEUTROPHILS # (AUTO) 8.4 (2.1-6.9); NEUTROPHILS % 76.4 % (38.7-80.0); PLATELET COUNT 482 x10e3/uL (140-360); RED BLOOD COUNT 3.92 x10e6/uL (3.6-5.1); RED CELL DISTRIBUTION WIDTH 19.9 % (11.7-14.4)
[2022-06-28 11:39] LABS: ALBUMIN 1.7 g/dL (3.5-5.0); ALBUMIN/GLOBULIN RATIO 0.4 (0.8-2.0); ANION GAP 14.2 mmol/L (8-16); CALCIUM 8.6 mg/dL (8.4-10.2); CREATININE, SERUM 0.94 mg/dL (0.57-1.11); MAGNESIUM 1.6 MG/DL (1.3-2.1); POTASSIUM 4.2 mmol/L (3.5-5.1)
[2022-06-28] MEDS: ATORVASTATIN 40 MG TAB PO SCH (21:47)
[2022-06-29] VITALS (8 sets, daily range): BP systolic 97–140; BP diastolic 43–74
[2022-06-29 07:00] LABS: CALCIUM 8.3 mg/dL (8.4-10.2); CREATININE, SERUM 0.98 mg/dL (0.57-1.11)
[2022-06-29] MEDS: NON-FORMULARY MEDICATION (Empagliflozin (Jardiance) 25 MG) PO SCH (09:00)
[2022-06-29] MEDS: GABAPENTIN 100 MG CAP PO SCH ×3 (09:29→21:46)
[2022-06-29] MEDS: FENOFIBRATE 145 MG TAB PO SCH (09:29)
[2022-06-29] MEDS: ASPIRIN 81 MG ENTERIC COATED PO SCH (09:29)
[2022-06-29] MEDS: FLUDROCORTISONE ACETATE 0.1 MG TAB PO SCH (09:30)
[2022-06-29] MEDS: LOSARTAN POTASSIUM 25 MG TAB PO SCH (09:30)
[2022-06-29] MEDS: DIGOXIN 0.125 MG TAB PO SCH (09:31)
[2022-06-29] MEDS: METOPROLOL SUCCINATE 25 MG TAB XL PO SCH (09:31)
[2022-06-29] MEDS: PANTOPRAZOLE SOD 40 MG TABEC PO SCH ×2 (09:32→16:39)
[2022-06-29] MEDS: FUROSEMIDE INJ 100 MG in SODIUM CHLORIDE 0.9% 90 ML IV SCH ×2 (09:33→19:00)
[2022-06-29] MEDS: INSULIN LISPRO 100 UNIT/1 ML 3ML VIAL SQ SCH ×4 (09:42→21:54)
[2022-06-29] MEDS: HYDROCODONE/APAP 5MG-325MG TAB PO PRN (16:39)
[2022-06-29] MEDS: ATORVASTATIN 40 MG TAB PO SCH (21:46)
[2022-06-29] MEDS: INSULIN GLARGINE 100 UNITS/ML VIAL SQ SCH (21:53)
[2022-06-30] MEDS: HYDROCODONE/APAP 5MG-325MG TAB PO PRN ×2 (01:01→09:29)
[2022-06-30 05:04] VITALS: BP 106/57
[2022-06-30] MEDS: FUROSEMIDE INJ 100 MG in SODIUM CHLORIDE 0.9% 90 ML IV SCH (06:35)
[2022-06-30] MEDS: INSULIN LISPRO 100 UNIT/1 ML 3ML VIAL SQ SCH ×3 (07:30→16:28)
[2022-06-30] MEDS: LOSARTAN POTASSIUM 25 MG TAB PO SCH (08:16)
[2022-06-30] MEDS: FENOFIBRATE 145 MG TAB PO SCH (08:16)
[2022-06-30] MEDS: PANTOPRAZOLE SOD 40 MG TABEC PO SCH ×2 (08:16→16:34)
[2022-06-30] MEDS: FLUDROCORTISONE ACETATE 0.1 MG TAB PO SCH (08:16)
[2022-06-30] MEDS: GABAPENTIN 100 MG CAP PO SCH ×2 (08:16→15:06)
[2022-06-30] MEDS: DIGOXIN 0.125 MG TAB PO SCH (08:16)
[2022-06-30] MEDS: NON-FORMULARY MEDICATION (Empagliflozin (Jardiance) 25 MG) PO SCH (08:17)
[2022-06-30] MEDS: ASPIRIN 81 MG ENTERIC COATED PO SCH (08:17)
[2022-06-30] MEDS: METOPROLOL SUCCINATE 25 MG TAB XL PO SCH (08:17)
[2022-06-30 08:35] VITALS: BP 108/56
[2022-06-30 09:00] VITALS: BP 108/56
[2022-06-30 12:21] VITALS: BP 98/55
[2022-06-30 16:58] VITALS: BP 112/68
[2022-06-30] MEDS ORDERED: FUROSEMIDE INJ 10 MG/ML 4 ML VIAL IV SCH (21:00)
== END 2022-06-30 17:47 | DRG 270 ==
LOC: ER 14:32 → ERHOLD 16:28 → MED/SURG2 06-16 20:00
PROVIDERS: ADMIT Internal Medicine; ATTEND Internal Medicine
PROC: 04CK3ZZ Extirpation of Matter from Right Femoral Artery, Percutaneous Approach (ICD-10-PCS; 2022-06-18)
PROC: 047K3Z1 Dilation of Right Femoral Artery using Drug-Coated Balloon, Percutaneous Approach (ICD-10-PCS; 2022-06-18)
PROC: 04CM3ZZ Extirpation of Matter from Right Popliteal Artery, Percutaneous Approach (ICD-10-PCS; 2022-06-18)
PROC: 047P3ZZ Dilation of Right Anterior Tibial Artery, Percutaneous Approach (ICD-10-PCS; 2022-06-18)
PROC: 047R3ZZ Dilation of Right Posterior Tibial Artery, Percutaneous Approach (ICD-10-PCS; 2022-06-18)
PROC: B41D1ZZ Fluoroscopy of Aorta and Bilateral Lower Extremity Arteries using Low Osmolar Contrast (ICD-10-PCS; 2022-06-18)
PROC: 0Y6H0Z1 Detachment at Right Lower Leg, High, Open Approach (ICD-10-PCS; 2022-06-25)
PROC: 0Y6M0Z0 Detachment at Right Foot, Complete, Open Approach (ICD-10-PCS; principal; 2022-06-25 13:11)
DX: E11.52 Type 2 diabetes mellitus with diabetic peripheral angiopathy with gangrene (principal); I50.23 Acute on chronic systolic (congestive) heart failure; E87.3 Alkalosis; I96 Gangrene, not elsewhere classified; L03.115 Cellulitis of right lower limb; E87.1 Hypo-osmolality and hyponatremia; E27.40 Unspecified adrenocortical insufficiency; I13.0 Hypertensive heart and chronic kidney disease with heart failure and stage 1 through stage 4 chronic kidney disease, or unspecified chronic kidney disease; M86.171 Other acute osteomyelitis, right ankle and foot; E11.21 Type 2 diabetes mellitus with diabetic nephropathy; E88.09 Other disorders of plasma-protein metabolism, not elsewhere classified; E66.01 Morbid (severe) obesity due to excess calories; Z68.32 Body mass index [BMI] 32.0-32.9, adult; E11.69 Type 2 diabetes mellitus with other specified complication; Z79.4 Long term (current) use of insulin; E11.51 Type 2 diabetes mellitus with diabetic peripheral angiopathy without gangrene; Z88.5 Allergy status to narcotic agent; E11.621 Type 2 diabetes mellitus with foot ulcer; L97.514 Non-pressure chronic ulcer of other part of right foot with necrosis of bone; Z91.199 Patient's noncompliance with other medical treatment and regimen due to unspecified reason; Z20.822 Contact with and (suspected) exposure to COVID-19; N18.9 Chronic kidney disease, unspecified; E11.22 Type 2 diabetes mellitus with diabetic chronic kidney disease; I25.10 Atherosclerotic heart disease of native coronary artery without angina pectoris; Z95.1 Presence of aortocoronary bypass graft; I70.291 Other atherosclerosis of native arteries of extremities, right leg; Z75.1 Person awaiting admission to adequate facility elsewhere; Z59.00 Homelessness unspecified; Z63.8 Other specified problems related to primary support group; Z62.820 Parent-biological child conflict; Z63.0 Problems in relationship with spouse or partner
CPT/HCPCS: 36247; 36415; 37224; 37225; 37228; 37232; 51701; 71046; 75625; 75635; 75710; 76937; 80048; 80053; 80061; 80202; 81001; 81025; 82044; 82533; 82570; 82948; 83036; 83605; 83735; 84100; 84156; 84443; 85025; 86140; 87040; 87086; 88304; 88307; 88311; 93005; 93306; 93925; 96361; 96366; 96372; 99152; 99153; 99252; 99284; C1724; C1725; C1760; C1769; C1887; C1894; C2623; J0696; J1100; J1170; J1644; J1650; J1815; J1940; J2001; J2250; J2405; J2543; J2795; J3480; J7030; J7050; J7799; Q9967